=== PATIENT | male | born 1965 | race Caucasian/White ===

== ENCOUNTER 2020-11-06 02:43 | Emergency (ER) | payer OTHER, SELFPAY ==
--- NOTE | ~2020-11-06 | XR_ITS ---
XR hand LT min 3V DATE: 11/06/2020 03:05 INDICATION: Swelling. No injury. TECHNIQUE: 3 views COMPARISON: None FINDINGS: A small chip fracture of the lateral aspect of the ulnar styloid process of undetermined ag e is suggested. There is soft tissue swelling. No other fracture or dislocation, periosteal reaction or bone destruction. IMPRESSION: Subtle small chip fracture of the ulnar styloid process of uncertain age; otherwise no si gnificant bony abnormality Reviewed, dictated and finalized at location A. IMPRESSION: Subtle small chip fracture of the ulnar styloid process of uncertai n age; otherwise no significant bony abnormality
[2020-11-06 02:39] VITALS: BP 142/87; PULSE 68; RESP 16; TEMP 36.6; O2SAT 97
[2020-11-06] MEDS: TETANUS,DIPHTHERIA,AC PERTUSSIS ADULT (0.5 ML) BOOSTRIX IM (03:14)
--- NOTE | 2020-11-06 03:19 | PC.NURSE ---
pt stated he is allergic to penicillin. Per EDP Blackburn not giving cefazolin at this time.
--- NOTE | 2020-11-06 03:29 | ED.EXTPRO ---
HPI - Extremity Problem General Chief complaint: Extremity Problem,Nontraumatic Stated complaint: hand swelling and tenderness Source: patient Mode of arrival: EMS Limitations: no limitations History of Present Illness HPI Narrative: This is a 55 year old male who presents for evaluation of left hand pain and swelling. He developed pain and redness to his left 5th finger 2 days ago. He thinks something bit him. He came in today by ambulance because his left hand is swollen. He denies nausea, vomiting, fever or chills. He denies iv drug use. He is unsure is his last tetanus Related Data Allergies Allergy/AdvReac Type Severity Reaction Status Date / Time Penicillins Allergy Itching Verified 11/06/20 02:58 phenytoin Allergy Unknown Verified 11/06/20 02:58 atomoxetine [From Strattera] AdvReac Chest Pain Verified 11/06/20 02:58 Review of Systems Review of Systems: All systems reviewed & are unremarkable except as noted in HPI and below PMFSH Past Medical History Medical History (Updated 11/06/20 @ 06:55 by Miroslava Blackburn MD) ADHD Bipolar disorder Surgical History Surgical History (Updated 11/06/20 @ 03:39 by Miroslava Blackburn MD) H/O right wrist surgery Social History Social History (Updated 11/06/20 @ 03:39 by Miroslava Blackburn MD) Smoking status: Current every day smoker Substance use type: marijuana Exam Const: General: no acute distress and alert Orientation/consciousness: patient oriented x3 Eyes: EOM: EOMs intact bilaterally Resp: Effort & Inspection: normal respiratory effort and no retractions Auscultation: clear to auscultation bilaterally Cardio: Rate: regular rate Rhythm: regular rhythm Heart sounds: Murmur heart sound present GI: GI Palp: Yes Soft to palpation, No Tenderness to palpation present (GI) and No Guarding due to palpation present (GI) Auscultation: normal bowel sounds Neuro: General: patient oriented x3 and moves all extremities Extrem: Other: left hand with redness and swelling to dorsum of proximal 5th finger with fluctuance, no active drainage. There is left hand edema, no palmar tenderness, the is able to extend and flex all fingers. Psych: Mental Status: mental status grossly normal Affect: normal affect Course Reevaluation(s) Reevaluation #1: Patient was given dose of clindamycin . I performed I and D to 5th finger abscess. He will be discharge with prescription for antibiotics. Date: 11/06/20 Time: 06:10 Vital Signs Vital signs: Vital Signs Temperature 97.8 F 11/06/20 02:39 Pulse Rate 68 11/06/20 02:39 Respiratory Rate 16 11/06/20 02:39 Blood Pressure 142/87 H 11/06/20 02:39 Pulse Oximetry 97 11/06/20 02:39 Temperature 97.8 F 11/06/20 02:39 Pulse Rate 63 11/06/20 06:47 Respiratory Rate 16 11/06/20 06:47 Blood Pressure 155/95 H 11/06/20 06:47 Pulse Oximetry 98 11/06/20 06:47 Procedures Abscess I/D hand: Date of Incision: 11/06/20 Time of Incision: 06:11 Side (if applicable): left (5th finger) Local Anesthetic: lidocaine 1% Amount of anesthesia used (mL): 2 Technique: incised with #11 blade and probed loculations Amount of fluid expressed (mL): 1 Irrigation: Yes Packing used?: iodoform I&D Results: Pus and Blood Complications: pain MDM - Extremity (Nontraumatic) Lab Data Result diagrams: 11/06/20 03:17 11/06/20 03:17 Labs: Lab Results 11/06/20 11/06/20 11/06/20 Range/Units 03:17 03:17 03:17 WBC 10.1 H (4.5-10.0) K/mm3 RBC 4.61 (4.6-6.20) M/mm3 Hgb 15.0 (14.0-18.0) g/dL Hct 43.6 (42.0-52.0) % MCV 94.6 (80-100) fl MCH 32.5 (26-34) pg MCHC 34.4 (32-36) g/dl RDW 12.5 (11.5-14.5) % Plt Count 212 (150-375) k/mm3 MPV 11.7 H (7.4-10.4) fl Immature Gran % (Auto) 0.3 (0-0.5) % Neut % (Auto) 74.3 H (45.5-73.1) % Lymph % (Auto) 15.1 L (18.
[2020-11-06 03:33] LABS: Basophils Percent Auto 0.4 % (0.2-1.2); Eosinophils Absolute Auto 0.1 K/mm3 (0-0.3); Eosinophils Percent Auto 1.4 % (0-4.4); Hematocrit 43.6 % (42.0-52.0); Immature Granulocyte Absolute 0.03 K/mm3 (0.00-0.031); Immature Granulocyte Percent A 0.3 % (0-0.5); Lymphocytes Absolute Auto 1.53 K/mm3 (0.9-3.2); Lymphocytes Percent Auto 15.1 % (18.3-44.2); Mean Corpuscular HGB Conc 34.4 g/dl (32-36); Mean Corpuscular Hemoglobin 32.5 pg (26-34); Mean Corpuscular Volume 94.6 fl (80-100); Mean Platelet Volume 11.7 fl (7.4-10.4); Monocytes Absolute Auto 0.9 K/mm3 (0.1-0.6); Monocytes Percent Auto 8.5 % (2.6-8.5); Neutrophils Absolute Auto 7.5 K/mm3 (1.3-6.7); Neutrophils Percent Auto 74.3 % (45.5-73.1); Platelet Count Result 212 k/mm3 (150-375); Red Blood Count 4.61 M/mm3 (4.6-6.20); Red Cell Distribution Width 12.5 % (11.5-14.5); White Blood Count 10.1 K/mm3 (4.5-10.0)
[2020-11-06] MEDS: CLINDAMYCIN 900 MG/D5W 50 ML 900 MG/50 ML PIGGYBACK 50 MG IVPB (03:41)
[2020-11-06 03:43] LABS: Prothrombin Time 13.3 Seconds (11.1-14.7)
[2020-11-06 03:44] LABS: Partial Thromboplastin Time 34.3 SECONDS (22.3-36.8)
[2020-11-06 03:51] LABS: Alanine Aminotransferase 22 U/L (4-50); Albumin Level 4.1 g/dL (3.5-5.1); Alkaline Phosphatase 71 U/L (38-126); Anion Gap 4 mmol/L (8-16); Aspartate Amino Transferase 38 U/L (17-59); Bilirubin,Total 0.2 mg/dL (0.2-1.3); Blood Urea Nitrogen 15 mg/dL (9-20); CRP 1.2 mg/dL (<1.0); Calcium 9.3 mg/dL (8.4-10.2); Carbon Dioxide 32 mmol/L (22-30); Chloride 104 mmol/L (98-107); Estimated CRCL calculation 77 ml/min; Estimated Glomerular Filt Rate > 60; Glucose 89 mg/dL (75-110); Potassium 3.5 mmol/L (3.4-5.0); Sodium 140 mmol/L (137-145)
[2020-11-06 04:28] LABS: Barbiturate Screen Urine Negative (Negative); Benzodiazepines Screen Urine Negative (Negative)
[2020-11-06 04:32] LABS: Cannabinoid Screen Urine Positive (Negative); Cocaine Screen Urine Positive (Negative); Methadone Screen Urine Negative (Negative); Opiate Screen Urine Negative (Negative); Phencyclidine Screen Urine Negative (Negative)
[2020-11-06 04:39] VITALS: BP 135/88; PULSE 68; RESP 16; O2SAT 99
[2020-11-06 06:47] VITALS: BP 155/95; PULSE 63; RESP 16; O2SAT 98
[2020-11-06 08:13] LABS: Amphetamine Screen Urine Positive (Negative)
== END 2020-11-06 07:05 | disposition home or self-care (01) ==
PROVIDERS: Emergency Provider General Practice
DX: L02.512 Cutaneous abscess of left hand (principal); F17.210 Nicotine dependence, cigarettes, uncomplicated; Z23 Encounter for immunization
CPT/HCPCS: 26010; 36415; 73130; 80053; 80307; 85025; 85610; 85730; 86140; 90471; 90715; 96365; 99284; A4565

== ENCOUNTER 2021-05-20 13:12 | Emergency (ER) | payer OTHER, SELFPAY ==
--- NOTE | 2021-05-20 14:45 | PC.NURSE ---
no answer when pt called.
== END 2021-05-20 14:45 | disposition left against medical advice (07) ==
DX: Z53.21 Procedure and treatment not carried out due to patient leaving prior to being seen by health care provider (principal)
CPT/HCPCS: 99199

== ENCOUNTER 2023-12-19 12:54 | Outpatient (CLI) | payer OTHER, SELFPAY ==
--- NOTE | ~2023-12-19 | CT_ITS ---
CT Scan of the Chest without Contrast: Clinical Indication: Lung cancer screening, asthma, current smoker Technique: Contiguous sections were acquired throughout the chest without intravenous contrast. Dose reduction technique was used on this scan by utilizing automated exposure control and iterative recon struction technique. The dose-length product (DLP) was 103.67 mGy-cm. Findings: There is no evidence of any significant mediastinal, hilar or axillary lymphadenopathy. The mediastin al soft tissues appear normal. There is no evidence of pleural or pericardial effusion. Right apical scarring noted. 3 mm pleural-based right upper lobe pulmonary nodule present (axial imag e 41). 2 mm right middle lobe pulmonary nodule present (axial image 65). 2 mm right lower lobe pulmon doris nodule present (axial image 64). 4 mm left upper lobe pulmonary nodule present (axial image 61). Probable focal atelectasis in the lingula. Images through the upper abdomen reveal no abnormalities. Impression: Lung RADS 2: Benign appearance. 12 month follow-up screening CT advised. Reviewed, dictated and finalized at location . Impression: Lung RADS 2: Benign appearance. 12 month follow-up screening CT advised.
== END 2023-12-19 12:55 | disposition home or self-care (01) ==
LOC: CHSIMG 12:57
DX: Z12.2 Encounter for screening for malignant neoplasm of respiratory organs (principal); F17.200 Nicotine dependence, unspecified, uncomplicated
CPT/HCPCS: 71271

== ENCOUNTER 2024-09-14 13:12 | Outpatient (CLI) | payer OTHER, SELFPAY | END 2024-09-14 13:13 | disposition home or self-care (01) | LOC: CHSIMG 13:15 | PROVIDERS: PCP Nurse Practitioner Family; Visit Provider Nurse Practitioner Family | DX: R91.8 Other nonspecific abnormal finding of lung field (principal) | CPT/HCPCS: 71250 ==